=== PATIENT | female | born 1995 | race Caucasian/White ===

== ENCOUNTER → 2021-06-24 14:46 | Outpatient (CLI) | payer SELFPAY ==
--- NOTE | 2021-06-24 16:09 | US_ITS ---
STUDY: SECOND AND THIRD TRIMESTER OBSTETRICAL ULTRASOUND - LIMITED REASON FOR EXAM: Female, 25 years old. placenta follow-up and growth PRIOR ULTRASOUND: Prior comparison studies are not available for review at this time. TECHNIQUE: Transabdominal and Transvaginal TECHNICAL QUALITY: Adequate. FINDINGS: There is a single intrauterine fetus. The fetus is in a cephalic presentation. There is demonstrated cardiac activity with a heart rate of 150 bpm. There is a normal amniotic fluid volume. The largest amniotic fluid pocket measures 4.7 cm. The amniotic fluid index (LAY) is 10.6 cm. The placenta is anterior in location and is not low lying. There are Grade 3 placental changes. The cervix measures cm in length: 2.8. The cord inserts into the anterior placenta at 33mm from the placental edge. BIOMETRY: BPD: 78 mm: 31 weeks, 2 days HC: 294 mm: 32 weeks, 3 days AC: 274 mm: 31 weeks, 2 days FL: 55 mm: 28 weeks, 6 days CI: 81 FL/AC: 20 FL/BPD: 70 HC/AC: 1.08 age by current US: 30 weeks, 4 days. FLORECITA by current US: 1.16.22. Estimated weight: 1632 grams, +/- 245 grams, 39 %. Age by LMP: 30 weeks, 5 days. FLORECITA by LMP: 1.15.22. US/OB Limited With Biometrics IMPRESSION: There is a single live intrauterine with a heart rate of 150 bpm. age by current US: 30 weeks, 4 days. FLORECITA by current US: 1.16.22. Estimated weight: 1632 grams, +/- 245 grams, 39 %. The cord inserts into the anterior placenta at 33mm from the placental edge. Electronically Signed: Alan Gaxiola MD at 18:59 EST , Service support ,
[2021-06-24 16:10] LABS: Absolute Lymphocyte Count 1.84 X10^3/uL (0.83-4.51); Absolute Neutrophil Count 8.6 X10^3/uL (2.0-7.7); Basophil# 0.04 X10^3/uL; Basophil% 0.3 % (0-1); Eosinophil# 0.29 X10^3/uL; Eosinophils% 2.5 % (0-5); Hematocrit 30.5 % (37-47); Hemoglobin 10.5 g/dL (12.0-15.0); Lymphocyte # 1.84 X10^3/ul (0.83-4.51); Lymphocyte % 15.9 % (19-41); Mean Corp Hgb Conc 34.4 g/dL (32-36); Mean Corpuscular Hgb 30.7 pg (27.0-32.0); Mean Corpuscular Volume 89.2 fL (81-99); Mean Platelet Vol. 10.8 fl (6.2-12.0); Monocyte% 6.1 % (0-10); NRBC Flagged by Analyzer 0 % (0-5); Neutrophil # 8.56 X10^3/uL (2.7-7.7); Platelet Count 194 K/mm3 (150-450); RBC Distribution Width SD 38.8 fl (35.1-43.9); Red Blood Count 3.42 M/mm3 (4.2-5.4); White Blood Count 11.6 K/mm3 (4.4-11.0)
[2021-06-24 16:32] LABS: Glucose Challenge Gest 1H 50g 161 mg/dL (70-140)
[2021-06-24 18:01] LABS: Chlamydia Trachomatis by PCR Negative (Negative); Neisserai gonorrhoeae by PCR Negative (Negative); Probe Check PASS; Sample Adequacy Control PASS; Specimen Processing Control PASS
[2021-06-25 09:48] LABS: Rubella IgG Reactive (Nonreactive)
== END ==
PROVIDERS: Visit Provider Obstetrics & Gynecology
DX: O43.103 Malformation of placenta, unspecified, third trimester (principal); O09.73 Supervision of high risk pregnancy due to social problems, third trimester; Z3A.00 Weeks of gestation of pregnancy not specified
CPT/HCPCS: 36415; 76816; 82950; 85025; 86762; 86850; 86900; 86901; 87491; 87591

== ENCOUNTER → 2021-07-12 07:12 | Outpatient (CLI) | payer OTHER, SELFPAY ==
[2021-07-12 07:56] LABS: Glucose GTT-Gestation. Fasting 85 mg/dL (<105)
[2021-07-12 09:28] LABS: Glucose GTT-Gestational 1 Hr 221 mg/dL (<190)
[2021-07-12 10:16] LABS: Glucose GTT-Gestational 2 Hr 222 mg/dL (<165)
[2021-07-12 11:53] LABS: Glucose GTT-Gestational 3 Hr 97 L (<145)
== END ==
PROVIDERS: PCP Family Medicine; Referring Provider Obstetrics & Gynecology; Visit Provider Obstetrics & Gynecology
DX: Z13.1 Encounter for screening for diabetes mellitus (principal)
CPT/HCPCS: 36415; 82951; 82952

== ENCOUNTER → 2021-07-23 | Outpatient (CLI) | payer SELFPAY | END | disposition home or self-care (01) | LOC: LABSPEC 13:49 | PROVIDERS: PCP Family Medicine; Visit Provider Obstetrics & Gynecology | DX: O09.73 Supervision of high risk pregnancy due to social problems, third trimester (principal); Z3A.00 Weeks of gestation of pregnancy not specified | CPT/HCPCS: 87086; 87088 ==

== ENCOUNTER → 2021-07-30 12:14 | Outpatient (CLI) | payer OTHER, SELFPAY ==
--- NOTE | 2021-07-30 12:15 | US_ITS ---
STUDY: SECOND AND THIRD TRIMESTER OBSTETRICAL ULTRASOUND - LIMITED REASON FOR EXAM: Female, 25 years old. growth PRIOR ULTRASOUND: Jun 24 2021 4:20pm . TECHNIQUE: Transabdominal TECHNICAL QUALITY: Adequate. FINDINGS: There is a single intrauterine fetus. The fetus is in a cephalic presentation. There is demonstrated cardiac activity with a heart rate of 141 bpm. There is a normal amniotic fluid volume. The largest amniotic fluid pocket measures 6.9 cm. The amniotic fluid index (LAY) is 14.3 cm. The placenta is anterior in location and is not low lying. There are Grade 3 placental changes. The cervix is obscured by overlying bowel gas and cannot be identified. . BIOMETRY: BPD: 88 mm: 35 weeks, 2 days HC: 322 mm: 36 weeks, 2 days AC: 317 mm: 35 weeks, 4 days FL: 65 mm: 33 weeks, 4 days CI: 78 FL/AC: 21 FL/BPD: 74 HC/AC: 1.02 age by current US: 35 weeks, 4 days. FLORECITA by current US: 1.17.22. Estimated weight: 2604 grams, +/- 391 grams, 31 %. age by prior US: 35 weeks, 5 days. FLORECITA by prior US: 1.16.22. Age by LMP: 35 weeks, 6 days. FLORECITA by LMP: 1.15.22. US/OB Limited With Biometrics IMPRESSION: There is a single live intrauterine with a heart rate of 141 bpm. age by current US: 35 weeks, 4 days. FLORECITA by current US: 1.17.22. Estimated weight: 2604 grams, +/- 391 grams, 31 %. Electronically Signed: Alan Gaxiola MD at 19:48 EST , Service support ,
== END ==
PROVIDERS: PCP Family Medicine; Visit Provider Obstetrics & Gynecology
DX: O24.419 Gestational diabetes mellitus in pregnancy, unspecified control (principal); Z3A.00 Weeks of gestation of pregnancy not specified
CPT/HCPCS: 76816

== ENCOUNTER → 2021-08-02 14:49 | Outpatient (CLI) | payer SELFPAY ==
--- NOTE | 2021-08-02 14:52 | US_ITS ---
STUDY: OBSTETRICAL ULTRASOUND - BIOPHYSICAL PROFILE REASON FOR EXAM: Female, 25 years old well being LMP: 11/21/2020 PRIOR ULTRASOUND: 07/30/2021 TECHNIQUE: Transabdominal TECHNICAL QUALITY: Adequate. FINDINGS: There is a single intrauterine fetus. The fetus is in a cephalic presentation. There is demonstrated cardiac activity with a heart rate of 171 bpm. There is a normal amniotic fluid volume. The largest amniotic fluid pocket measures 6.5 cm. The amniotic fluid index (LAY) is 16.5 cm. The placenta is anterior in location and is not low lying. There are Grade 3 placental changes. Age by LMP: 36 weeks, 2 days. FLOREICTA by LMP: 08/28/2021. BIOPHYSICAL PROFILE: Breathing Movements (FBM): 2 Gross Body Movements (GBM): 2 Tone (FT): 2 Amniotic Fluid Volume (AFV): 2 TOTAL SCORE: 8 / 8 US/Biophysical Prof W/O Non Stres IMPRESSION: Normal biophysical profile of 8/8. Nuchal umbilical cord. Electronically Signed: Leo Hernandez MD at 10:00 EST Tel , Service support ,
== END ==
PROVIDERS: PCP Family Medicine; Visit Provider Obstetrics & Gynecology
DX: O24.419 Gestational diabetes mellitus in pregnancy, unspecified control (principal); O09.73 Supervision of high risk pregnancy due to social problems, third trimester; Z3A.00 Weeks of gestation of pregnancy not specified
CPT/HCPCS: 76819; 87081

== ENCOUNTER → 2021-08-09 08:49 | Outpatient (CLI) | payer SELFPAY ==
--- NOTE | 2021-08-09 08:51 | US_ITS ---
HISTORY: well being, GDM. TECHNIQUE: US Biophysical Profile W/O Nonst. Transabdominal pelvic ultrasound was performed. Number of images including paperwork 37. COMPARISON: 08/02/2021. FINDINGS: INTRAUTERINE GESTATION(s): Single. PRESENTATION: Cephalic. PLACENTA: Anterior, grade 3. No placenta previa. HEART MOTION: 141 bpm. AMNIOTIC FLUID INDEX (LAY): 11.2 cm. MVP 5 cm. BIOPHYSICAL PROFILE (BPP): 03/21. -- breathin2. -- movement: 2. -- tone: 2. --LAY: 2/2. US/Biophysical Prof W/O Non Stres IMPRESSION: Single living intrauterine with a normal biophysical profile score. at 0936 Reported and signed by: Dania Calderon MD Electronically Signed: Dania Calderon MD at 9:35 EST Tel , Service support ,
== END ==
PROVIDERS: PCP Family Medicine; Referring Provider Obstetrics & Gynecology; Visit Provider Obstetrics & Gynecology
DX: O24.419 Gestational diabetes mellitus in pregnancy, unspecified control (principal); Z3A.00 Weeks of gestation of pregnancy not specified
CPT/HCPCS: 76819

== ENCOUNTER 2021-08-16 12:24 | Outpatient (CLI) | payer SELFPAY ==
--- NOTE | 2021-08-16 12:26 | US_ITS ---
STUDY: OBSTETRICAL ULTRASOUND - BIOPHYSICAL PROFILE REASON FOR EXAM: Female, 25 years old well being LMP: Unknown. PRIOR ULTRASOUND: 08/09/2021 TECHNIQUE: Transabdominal TECHNICAL QUALITY: Adequate. FINDINGS: There is a single intrauterine fetus. The fetus is in a cephalic presentation. There is demonstrated cardiac activity with a heart rate of 145 bpm. There is a normal amniotic fluid volume. The largest amniotic fluid pocket measures 4.3 cm. The amniotic fluid index (LAY) is 10.4 cm. The placenta is anterior in location and is not low lying. There are Grade 3 placental changes. Age by LMP: 38 weeks, 2 days. FLORECITA by LMP: 08/18/2021. BIOPHYSICAL PROFILE: Breathing Movements (FBM): 2 Gross Body Movements (GBM): 2 Tone (FT): 2 Amniotic Fluid Volume (AFV): 2 TOTAL SCORE: 8 / 8 US/Biophysical Prof W/O Non Stres IMPRESSION: Normal biophysical profile of 8/8. Electronically Signed: Gilberto Mcmillan MD at 13:14 EST , Service support ,
== END 2021-08-16 23:59 | disposition short-term general hospital (02) ==
PROVIDERS: PCP Family Medicine; Referring Provider Obstetrics & Gynecology; Visit Provider Obstetrics & Gynecology
DX: O24.419 Gestational diabetes mellitus in pregnancy, unspecified control (principal); Z3A.00 Weeks of gestation of pregnancy not specified
CPT/HCPCS: 76819

== ENCOUNTER 2021-08-18 23:45 | Inpatient (IN) | payer SELFPAY ==
[2021-08-18 23:17] VITALS: BMI 26.2
[2021-08-18 23:29] VITALS: BP 125/72; PULSE 81
[2021-08-18 23:31] VITALS: PULSE 86; TEMP 36.8; O2SAT 98
--- NOTE | 2021-08-18 23:55 | HP.PCM.OB_ITS ---
HPI - General General Date of Admission: 08/18/21 HPI Narrative ANA OLIVAREZ, is a 25@ 38 weeks 4 days F who presents to l&D for painful contractions. Upon arrival she is found to be 5/70/-2 and having irregular contractions. She is [employer] and lives over an hour away. She also is being treated for gestational diabetes with metformin Maternal Data Information FLORECITA Calculator Estimated Delivery Date Method Current WG Current Estimate 08/28/21 LMP (Certain) 38w 4d PFSH PFS Medical History Abnormal glucose affecting Anemia Gestational diabetes Home Medications docosahexaenoic acid 200 mg capsule mg PO 06/24/21 [History Last Taken Unknown] calcium 1 mg PO DAILY 08/18/21 [History Last Taken 08/18/21 08:00] magnesium 1 tab PO DAILY 08/18/21 [History Last Taken 08/18/21 08:00] metformin 500 mg PO DAILY 08/18/21 [History Last Taken 08/17/21 21:00] [id number] [] 1 tab PO DAILY 08/18/21 [History Last Taken 08/18/21 08:00] Allergy/AdvReac Type Severity Reaction Status Date / Time No Known Allergies Allergy Verified 08/18/21 23:23 Family History Mother Hypertension Social History Smoking Status: Never smoker alcohol intake: never substance use type: does not use what type of physical activity do you participate in: none additional social history: - Sadiq History 1 Elective abortions Hx Para Spontaneous abortions Hx # Term Pregnancies Ectopic pregnancies Hx # Pregnancies Multiple births # of living children Visit Details Expected Delivery Route/Plan plan IOL 39 Labor Preferences- labor support person: Sadiq labor intervention preferences: minimal pain management options preferred: minimal cut cord/dad catch: [] : yes PP control planned: NFP discussed possible routes of delivery and associated risks: [] special requests: [] Plans Covid status: counseled regarding risk of covid in vs vaccination and declined vaccination Flu vaccine: declined Tdap vaccine: declined Rhogam: na LARC form signed: declined movement and labor precautions reviewed. Problem list reviewed and updated with the most current plan of care details and appropriate orders placed. Relevant counseling for the gestational age provided. Continue routine care and follow up unless otherwise noted in visit notes/problem list details OB Flowsheet Initial Weight: 143 lb Date -?-?-?-?-?-?-?-?-?-?-?-?- EGA Weight BP Urine Prot -?-?-?-?-?-?-?-?-?-?-?-?- Glucose FHR FuHt Pres Dilation -?-?-?-?-?-?-?-?-?-?-?-?- Effaced St Visit Note 06/24/21 -?-?-?-?-?-?-?-?-?-?-?-?- 30w 5d 143 lb (+0 oz) 120/80 120/80 Negative -?-?-?-?-?-?-?-?-?-?-?-?- Negative 160 -?-?-?-?-?-?-?-?-?-?-?-?- JV- new transfer of care from [facility]. All new ob labs and us and glucola ordered. 07/01/21 -?-?-?-?-?-?-?-?-?-?-?-?- 31w 5d 143 lb (+0 oz) 116/64 Negative -?-?-?-?-?-?-?-?-?-?-?-?- Negative 160 31 -?-?-?-?-?-?-?-?-?-?-?-?- SM- no vb abnrom al discharge.discussed GTT test good fm no regular ctx 07/16/21 -?-?-?-?-?-?-?-?-?-?-?-?- 33w 6d 146 lb (+3 lb) 114/80 Negative -?-?-?-?-?-?-?-?-?-?-?-?- Negative 157 33 -?-?-?-?-?-?-?-?-?-?-?-?- JV- no lof, vagi nal bleeding, or dec fm. she did one fasting level today and it registered low 15 min after eating it was 180. appropriate way to record levels discussed. waiting on Dr. Fletcher's office to call her. 07/23/21 -?-?-?-?-?-?-?-?-?-?-?-?- 34w 6d 147 lb (+4 lb) 130/78 -?-?-?-?-?-?-?-?-?-?-?-?- 165 34 -?-?-?-?--?-?-?-?-?-?-?-?- JV- fasting omayra ls are 90's, 2 hr pp are 90-165 (on one occasion) still trying to get her in touch with endo. overall doing well with glucose log. 07/30/21 -?-?-?-?-?-?-?-?-?-?-?-?- 35w 6d 147 lb 4 oz (+4 lb 4 oz) 138/80 Negative -?-?-?-?-?-?-?-?-?-?-?-?- Negative 145 35 -?-?-?-?-?--?-?-?-?-?-?-?- JV- no lof ,vagi nal bleeding, or cramping. pt is taking metformin now. plan for BPP weekly 08/02/21 -?-?-?-?-?-?-?-?-?-?-?-?- 36w 2d 148 lb 4 oz (+5 lb 4 oz) 118/76 Negative -?-?-?-?-?-?-?-?-?-?-?-?- Negative 140 36 Cephalic 2 -?-?-?-?-?-?-?-?-?-?-?-?- 60 -2 SM- no vb lof good fm nor eguarctx gbs 08/09/21 -?-?-?-?-?-?-?-?-?-?-?-?- 37w 2d 149 lb (+6 lb) 110/70 Negative -?-?-?-?-?-?-?-?-?-?-?-?- Negative 140 37 Cephalic 3 -?-?-?-?-?-?-?-?-?-?-?-?- 60 -2 SM- no vb lof good fm no regular ctx,BS well controlled after increasing metformin. discussed IOL at 39 if no spontaneous labor before then. 08/16/21 -?-?-?-?-?-?-?-?-?-?-?-?- 38w 2d 148 lb 2 oz (+5 lb 2 oz) 130/78 Negative -?-?-?-?-?-?-?-?-?-?-?-?- Negative 140 38 Cephalic 4 -?-?-?-?-?-?-?-?-?-?-?-?- 70 -1 SM- no vb lof good fm no regular ctx, UNDECIDED ABOUT DATE OF INDUCTION 08/18/21 -?-?-?-?-?--?-?-?-?-?-?-?- 38w 4d 148 lb 5.938 oz (+5 lb 5.938 oz) 125/72 -?-?-?-?-?-?-?-?-?-?-?-?- -?-?-?-?-?-?-?-?-?-?-?-?- ROS Constitutional Constitutional: Denies change in weight, fatigue, fever(s), headache(s), poor appetite or weakness Eyes Eyes: Denies blurry vision, change in vision, seeing flashes or spots in vision ENT HEENT: Denies dizziness, headache(s), loss taste/smell or sore throat Cardiovascular Cardiovascular: Denies chest pain, dizziness, dyspnea, irregular heart rhythm, leg edema, palpitations, rapid heart rate or vomiting Respiratory/Chest Respiratory/Chest: Denies chest tightness, cough, dyspnea or breast pain Gastrointestinal Gastrointestinal: Denies abdominal pain, anorexia, constipation, cramping, diarrhea, hemorrhoids, vomiting or weight changes Genitourinary Genitourinary: Denies dysuria, flank pain, genital lesions, genital pain, urinary frequency or urinary urgency Musculoskeletal Musculoskeletal: Denies back pain, difficulty walking, joint pain, limited range of motion, muscle cramps or numbness Integumentary Integumentary: Denies lesions or unusual bruising Neurologic Neurologic: Denies abnormal movements, abnormal speech, dizziness, numbness, seizure-like activity or syncope Psychiatric Psychiatric: Denies anxiety, behavioral changes, change in appetite, change in libido, cognitive impairment, confusion, depression, difficulty concentrating, hallucinations or suicidal thoughts Endocrine Endocrinology: Denies excessive sweating, polydipsia or polyuria Hematologic/Lymphatic Hematologic/Lymphatic: Denies easy bleeding, easy bruising or lymphadenopathy Allergic/Immunologic Allergic/Immunologic: Denies itchy eyes, lip swelling, seasonal rhinorrhea, rhinitis, throat swelling, tongue swelling, eczemia, wheezing or asthma Vital Signs Vital Signs Vital Signs: 08/18/21 23:29 08/18/21 23:31 Temperature 98.2 F Temperature Source Temporal Pulse Rate 81 86 Blood Pressure 125/72 H BP Systolic 125 BP Diastolic 72 Pulse Ox 98 Weight Weight: 148 lb 5.938 oz Body Mass Index (BMI) 26.2 Physical Exam Const alert, oriented x3, no apparent distress and healthy appearing General Appearance: cooperative; Negative for anxious HEENT normocephalic Face and Sinus: normal facial exam Eyes EOMs intact bilaterally and no scleral icterus General Eye: normal appearance of both eyes Neck full ROM and supple Lymph Lymphatic: no lymphadenopathy noted Chest Chest: abnormal inspection of the chest Resp normal respiratory effort Effort and Inspection: able to speak in complete sentences Cardio regular rate GI soft to palpation and non-tender Inspection: gravid Palpation: soft; Negative for tender external exam normal Amniotic Fluid: other cx: 70/-2 Back/Spine no CVA tenderness Extremity normal to inspection, full ROM and no clubbing, cyanosis or edema General Extremity: Negative for calf tenderness or edema Skin Lesions: no lesions Rashes: no rashes Psych mental status grossly normal Labs Labs Labs: Blood Type O POSITIVE Antibody Screen NEGATIVE Hct 30.5 % (37-47) L Hgb 10.5 g/dL (12.0-15.0) L Obstetrics US Rubella IgG Antibody Reactive (Nonreactive) C.trachomatis DNA (PCR) Negative (Negative) Glucose 1 Hr 50 gm 161 mg/dL (70-140) H Assessment & Plan (1) Gestational diabetes: QUALIFIERS: Gestational diabetes mellitus control: oral hypoglycemic-controlled Trimester: third trimester Qualified Code(s): O24.415 - Gestational diabetes mellitus in , controlled by oral hypoglycemic drugs COMMENT: metformin controlled. weekly bpp. plan IOL 39 weeks (2) : QUALIFIERS: Weeks of gestation: 38 weeks Qualified Code(s): Z3A.38 - 38 weeks gestation of COMMENT: 30 week [facility] for hospital due to placental abnormality. GBS NEG. plan rest of labs to be drawn at (3) Anemia: COMMENT: iron supplement (4) Marginal insertion of umbilical cord affecting management of mother: COMMENT: nl growth (5) Supervision of high risk due to social problems, third trimester: COMMENT: PRR (sp labs) FLORECITA 08/28/21 surprise Sadiq PLAN: Patient presents IAL, plan expectant management for , pi tocin/AROM PRN if needed. Pain management: plans epidural. GBS negative. Management of any complications: gestational diabetes- plan to check a glucose now and then every hour. start insulin drip as needed I have reviewed the [facility] and made any clinically relevant updates.
[2021-08-19] VITALS (19 sets, daily range): BP systolic 100–133; BP diastolic 54–80; PULSE 62–101; RESP 18; TEMP 36.3–37.2; O2SAT 96–99
[2021-08-19] MEDS: Lactated Ringers 1,000 ML 50 ML IV (00:25)
[2021-08-19 00:43] LABS: Absolute Lymphocyte Count 2.14 X10^3/uL (0.83-4.51); Basophil# 0.04 X10^3/uL; Basophil% 0.4 % (0-1); Eosinophil# 0.17 X10^3/uL; Eosinophils% 1.5 % (0-5); Hematocrit 34.4 % (37-47); Hemoglobin 11.9 g/dL (12.0-15.0); Lymphocyte # 2.14 X10^3/ul (0.83-4.51); Mean Corp Hgb Conc 34.6 g/dL (32-36); Mean Corpuscular Hgb 30.1 pg (27.0-32.0); Mean Corpuscular Volume 87.1 fL (81-99); Mean Platelet Vol. 11.2 fl (6.2-12.0); Monocyte# 0.88 X10^3/uL; Monocyte% 7.8 % (0-10); NRBC Flagged by Analyzer 0 % (0-5); Neutrophil # 7.95 X10^3/uL (2.7-7.7); Neutrophil % 70.6 % (47-70); Platelet Count 195 K/mm3 (150-450); RBC Distribution Width CV 12.2 % (11.6-14.6); RBC Distribution Width SD 39.1 fl (35.1-43.9); Red Blood Count 3.95 M/mm3 (4.2-5.4); White Blood Count 11.3 K/mm3 (4.4-11.0)
[2021-08-19 01:28] LABS: Mucous, Urine 0 SEEN /hpf (<or=2+)
[2021-08-19 01:37] LABS: Color, Urine Yellow (Yellow); Glucose, Dipstick Normal (Normal); Ketone-Dipstick Negative (Negative); Leukocyte Esterase-Dipstick 25 /ul (Negative); Nitrite-Dipstick Negative (Negative); Occult Blood-Urine 25 /ul (Negative); Protein-Dipstick 15 mg/dl (Negative); Urine Bilirubin Dipstick Negative (Negative); Urine Clarity Sl. Cloudy (Clear); Urine Urobilinogen Normal (Normal); Urine pH 6.5 (5.0 - 8.0)
[2021-08-19 01:44] LABS: Amorphous Sediment 1+; Bacteria 4+ /hpf (None Seen); Red Blood Cells-Urine 0-5 SEEN /hpf (0-5); Squamous Epithelial Cells - UA 10-25 SEEN /hpf (5-10); White Blood Cells 0-5 SEEN /hpf (0-5)
[2021-08-19 02:02] LABS: Amphetamine Urine VISTA NEGATIVE (<1000 ng/mL); Barbiturate Urine VISTA NEGATIVE (< 200 ng/mL); Benzodiazepine Urine VISTA NEGATIVE (< 200 ng/mL); Cocaine Urine VISTA NEGATIVE (< 300 ng/mL); Ecstacy Urine VISTA NEGATIVE (< 500 ng/mL); Methadone Urine VISTA NEGATIVE (< 300 ng/mL); PCP Urine VISTA NEGATIVE (< 25 ng/mL); THC Urine VISTA NEGATIVE (< 50 ng/mL); Vista UDS pH Range 6
[2021-08-19 02:11] LABS: Bedside Glucose 87 mg/dL (70-110)
[2021-08-19 02:11] LABS: Bedside Glucose 88 mg/dL (70-110)
[2021-08-19 02:15] LABS: Bedside Glucose 88 mg/dL (70-110)
[2021-08-19] MEDS: Oxytocin 30 units/NS 500 ml 30 UNITS/500 ML IV.SOLN IV (03:08)
[2021-08-19 03:16] LABS: Bedside Glucose 84 mg/dL (70-110)
[2021-08-19 06:35] LABS: Syphilis Antibodies Non-reactive
[2021-08-19 06:57] LABS: HIV - WCH Non-Reactive (Nonreactive); Hepatitis B Surface Antigen Non-Reactive (Nonreactive); Hepatitis C Antibody Non-Reactive (Nonreactive)
[2021-08-19 07:21] LABS: Bedside Glucose 67 mg/dL (70-110)
--- NOTE | 2021-08-19 07:54 | PN_ITS ---
Progress Note pt is sitting comfortably in bed. She declines epidural currently but states that if she needs it she will ask for it. current tracing: FHT: Moderate variability reactive no decelerations category I tracing [place]: q3 min Contractions cx: 6/80/0 membranes ruptured with clear fluid return reviewed tracing abnormalities since last note: no changes A/P: 25 y/o @ 38 weeks 5 days with gestational diabetes -gdmb on metformin -continue pitocin -q 1 hr glucose level checks- last was in the 60's and she was given a slushy and feeling well. -anticipate soon
[2021-08-19 08:41] LABS: Bedside Glucose 109 mg/dL (70-110)
[2021-08-19] MEDS: Oxytocin 30 units/NS 500 ml 30 UNITS/500 ML IV.SOLN 334 UNITS IV (10:55)
[2021-08-19 11:25] LABS: Bedside Glucose 82 mg/dL (70-110)
[2021-08-19 12:36] LABS: Bedside Glucose 94 mg/dL (70-110)
--- NOTE | 2021-08-19 13:05 | EX.PCM.OBRPT ---
Assessment & Plan (1) Gestational diabetes: QUALIFIERS: Gestational diabetes mellitus control: oral hypoglycemic-controlled Trimester: third trimester Qualified Code(s): O24.415 - Gestational diabetes mellitus in , controlled by oral hypoglycemic drugs COMMENT: metformin controlled. weekly bpp. plan IOL 39 weeks (2) : QUALIFIERS: Weeks of gestation: 38 weeks Qualified Code(s): Z3A.38 - 38 weeks gestation of COMMENT: 30 week HELDER [facility] for hospital due to placental abnormality. GBS NEG. plan rest of labs to be drawn at (3) Anemia: COMMENT: iron supplement (4) Marginal insertion of umbilical cord affecting management of mother: COMMENT: nl growth (5) Supervision of high risk due to social problems, third trimester: COMMENT: PRR (sp labs) FLORECITA 08/28/21 surprise Sadiq Maternal Data Information FLORECITA Calculator Estimated Delivery Date Method Current WG Current Estimate 08/28/21 LMP (Certain) 38w 5d Vaginal Delivery Maternal Presentation Maternal Presentation: Active Labor Type of Induction: Pitocin Operative Information Date of Procedure: 08/19/21 Pre-Operative Diagnosis: 38 week 6 days G1, active labor, gestational diabetes class B Post-Operative Diagnosis: 38 week 6 days G1, active labor, gestational diabetes class B Type of Anesthesia: None Drain: Marion to straight drain Estimated Blood Loss: 100cc Findings Description of Procedure: Patient began pushing and delivered the head in the MAHIN presentation. The head was delivered atraumatically and a loose nuchal cord ?1 was identified and easily reduced over the infant's head. The anterior and posterior shoulders delivered without complication followed by the rest of the infant and the infant was placed on the maternal abdomen. Delayed cord clamping was employed for approximately 60 seconds. Cord was clamped and cut and gentle traction was applied to the cord and the placenta delivered spontaneously immediately following it was noted to be intact with three-vessel cord. The perineum and vagina were inspected and noted to have a 2nd degree perineal laceration. The laceration was repaired using a 2-0 vicryl stur EBL was 100 cc. Patient and infant tolerated delivery well. Presentation: Vertex Amniotic Membrane Rupture Type: Artificial Time of Membrane Rupture: 7:30am Amniotic Fluid Description: Clear Placental Delivery Description: Spontaneous Placenta Disposition: [facility] Cord Vessel Description: 3 Vessels Cord Entanglement: Around neck x 1, loose Nuchal Cord Compression: With compression A Gender: Male (1 minute): 8 (5 minute): 9 Delayed Cord Clamping: Yes Post Vaginal Delivery Medications Given After Delivery: IV Pitocin Episiotomy Description: None Laceration: Midline and 2nd degree Complication Complications: None Multi Select Codes Urinary/Genital Urinary/Genital CPT Codes: 03771 Vaginal Delivery [facility]
[2021-08-20 00:50] VITALS: BP 101/59; PULSE 75; RESP 16
[2021-08-20 04:31] VITALS: BP 101/49; PULSE 96; RESP 18; TEMP 36.7
[2021-08-20] MEDS: Acetaminophen 500 MG Tablet 1000 MG PO ×2 (04:36→13:29)
[2021-08-20 06:15] LABS: Bedside Glucose 83 mg/dL (70-110)
[2021-08-20 08:00] VITALS: BP 104/61; PULSE 70; RESP 14; TEMP 36.6
--- NOTE | 2021-08-20 08:21 | PCM.PN.OB ---
Subjective Subjective Patient doing well without complaints. Tolerating PO. Ambulating and voiding without difficulty. Feeding well. Denies chest pain, shortness of breath, calf pain/swelling, fevers, chills, lightheadedness. Objective Data Objective Data Vital Signs: Vital Signs Temp Pulse Resp BP Pulse Ox 97.9 F 70 14 104/61 96 08/20/21 08:00 08/20/21 08:00 08/20/21 08:00 08/20/21 08:00 08/19/21 07:05 Oxygen Delivery Method Room Air Weight: 148 lb 5.938 oz Body Mass Index (BMI) 26.2 Intake & Output: Intake and Output for Last 24 Hours 08/18/21 08/19/21 08/20/21 23:59 23:59 23:59 Intake Total 1079.89 / 1079.89 Output Total 100 / 100 Balance 979.89 / 979.89 Lab / Micro Data Result Diagrams: 08/19/21 00:25 Labs: Laboratory Results - last 24 hr 08/19/21 08:21: POC Glucose 109 08/19/21 09:31: POC Glucose 82 08/19/21 12:16: POC Glucose 94 08/20/21 06:10: POC Glucose 83 Micro: Microbiology 08/19/21 00:15 Nasal Secretion SARS-CoV-2 Antigen (Rapid) - Final ROS Constitutional Constitutional: Denies chills, fatigue, fever(s), poor appetite or weakness Eyes Eyes: Denies blurry vision, change in vision, seeing flashes or spots in vision ENT HEENT: Denies dizziness, headache(s), loss taste/smell or sore throat Cardiovascular Cardiovascular: Denies chest pain, dizziness, dyspnea, irregular heart rhythm, palpitations or rapid heart rate Respiratory/Chest Respiratory/Chest: Denies chest tightness, cough, dyspnea or breast pain Gastrointestinal Gastrointestinal: Denies abdominal pain, constipation or vomiting Genitourinary Genitourinary: Denies dysuria or flank pain Musculoskeletal Musculoskeletal: Denies difficulty walking, joint pain, limited range of motion or numbness Neurologic Neurologic: Denies abnormal movements, abnormal speech, dizziness, numbness, seizure-like activity or syncope Psychiatric Psychiatric: Denies anxiety, behavioral changes, change in appetite, confusion, depression or suicidal thoughts Physical Exam Const alert, oriented x3 and no apparent distress General Appearance: cooperative and comfortable Resp normal respiratory effort Cardio regular rate GI normal to inspection, nondistended, normoactive bowel sounds GI Narrative: uterus is firm below umbilicus Palpation: soft Bimanual Exam - Adnexa, Other: Negative for cul-de-sac fullness Back/Spine no CVA tenderness and thoraco-lumbar ROM normal Extremity normal to inspection, no clubbing, cyanosis or edema, no calf tenderness and no pedal edema Psych mental status grossly normal, thought process normal, cooperative, affect normal, speech normal, activity/motor behavior normal, denies homicidal ideation and denies suicidal ideation Assessment & Plan (1) Gestational diabetes: QUALIFIERS: Gestational diabetes mellitus control: oral hypoglycemic-controlled Trimester: third trimester Qualified Code(s): O24.415 - Gestational diabetes mellitus in , controlled by oral hypoglycemic drugs COMMENT: metformin controlled. weekly bpp. plan IOL 39 weeks (2) : QUALIFIERS: Weeks of gestation: 38 weeks Qualified Code(s): Z3A.38 - 38 weeks gestation of COMMENT: 30 week [facility] for hospital due to placental abnormality. GBS NEG. plan rest of labs to be drawn at (3) Anemia: COMMENT: iron supplement (4) Marginal insertion of umbilical cord affecting management of mother: COMMENT: nl growth (5) Supervision of high risk due to social problems, third trimester: COMMENT: PRR (sp labs) FLORECITA 08/28/21 surprise Sadiq PLAN: s/p PPD # 1 1. routine post delivery care 2. breast feeding- support given 3. rh positive 4. rubella immune 5. pt wants to go home today. will dc this afternoon
--- NOTE | 2021-08-20 08:22 | PCM.DC ---
Discharge Instructions Diet Discharge Diet: No restrictions Activity Discharge Activity: Return to Normal Activity, May Not Drive (while taking narcotic pain medications.) and May Shower May resume sexual activity in: 4-6 weeks Dressing / Incision Call your doctor if your incision/area has: Continuous Slow Oozing, Sudden Increased Bleeding, Increased Pain/ Swelling, Increased Redness and Foul Smelling Discharge Follow Up Care Please Follow Up With: Kelsi Victoria DO When: Call [phone] to make an appointment with your doctor in 6 weeks. If you had elevated blood pressure or 4th degree laceration, you will need to be seen in 2 weeks. Test Results: Test results from this visit will be discussed in further detail at your follow-up appointment, if applicable. Discharge Plan Admission Admit Date/Time: 08/18/21 23:45 Primary Reason for Your Visit: labor Attending Provider: Kelsi Victoria Primary Care Provider: Sohan Haro Discharge Orders/Prescriptions Prescriptions: New ibuprofen 800 mg tablet 800 mg PO Q8H PRN (Reason: pain) 7 Days Qty: 30 RF: 0 Continued [id number] 1 mg Tablet 1 tab PO DAILY RF: 0 calcium 100 mg Capsule 1 mg PO DAILY RF: 0 magnesium Tablet 1 tab PO DAILY RF: 0 Discontinued metformin 500 mg tablet 500 mg PO DAILY RF: 0 Referrals / Follow Up: Sohan Haro MD [Primary Care Provider] - Disposition Disposition (needs filled in before D/C Order can be placed): Home, Self Care
[2021-08-20 12:00] VITALS: BP 103/57; PULSE 82; RESP 16; TEMP 37.3
== END 2021-08-20 14:30 | disposition home or self-care (01) | DRG 807 ==
LOC: WPOUT 23:45 → WP 23:45
PROVIDERS: Admitting Provider Obstetrics & Gynecology; PCP Family Medicine; Referring Provider Obstetrics & Gynecology; Visit Provider Obstetrics & Gynecology
DX: O24.425 Gestational diabetes mellitus in childbirth, controlled by oral hypoglycemic drugs (principal); Z37.0 Single live birth; D64.9 Anemia, unspecified; O69.81X0 Labor and delivery complicated by cord around neck, without compression, not applicable or unspecified; O99.02 Anemia complicating childbirth; O70.1 Second degree perineal laceration during delivery; Z20.822 Contact with and (suspected) exposure to COVID-19; Z79.84 Long term (current) use of oral hypoglycemic drugs; Z3A.38 38 weeks gestation of pregnancy
CPT/HCPCS: 59025; 59050; 80307; 81001; 82962; 85025; 86703; 86780; 86803; 86850; 86900; 86901; 87340; 87426; 99218; J7120; G0378